=== PATIENT | male | born 1945 | race Caucasian/White ===

== ENCOUNTER 2019-12-27 10:45 | Emergency (ER) | payer MEDICARE, MEDICAID ==
[~2019-12-27] VITALS: Ht 170.2 cm; Wt 68.0 kg
[2019-12-27 11:53] LABS: BASO % 0 % (0-3); EOS # 0.3 x10^3/uL (0.0-0.7); EOS % 3 % (0-3); HEMATOCRIT 38.4 % (39.0-53.0); LYMPH # 2.3 x10^3/uL (1.0-4.8); LYMPH % 25 % (24-48); MEAN CORPUSCULAR HEMOGLOBIN 30 pg (25-35); MEAN CORPUSCULAR HGB CONC 34 g/dL (31-37); MEAN CORPUSCULAR VOLUME 90 fL (79-100); MONO # 0.9 x10^3/uL (0.0-1.1); MONO % 10 % (0-9); NEUT # 5.8 x10^3/uL (1.8-7.7); NEUT % 62 % (31-73); PLATELET COUNT 219 x10^3/uL (140-400); RED BLOOD COUNT 4.28 x10^6/uL (4.30-5.70); RED CELL DISTRIBUTION WIDTH 13.3 % (11.5-14.5); WHITE BLOOD COUNT 9.3 x10^3/uL (4.0-11.0)
[2019-12-27 11:54] LABS: BILIRUBIN,URINE NEGATIVE (NEG); CLARITY,URINE CLEAR; COLOR,URINE YELLOW; NITRITE,URINE NEGATIVE (NEG); PROTEIN,URINE NEGATIVE (NEG-TRACE); UROBILINOGEN,URINE 0.2 mg/dL (0.2 mg/dL)
[2019-12-27 12:03] LABS: AMORPHOUS SEDIMENT,UR PRESENT /HPF; BACTERIA,URINE FEW /HPF (0-FEW); CALCIUM 8.6 mg/dL (8.5-10.1); CREATININE 1.3 mg/dL (0.7-1.3); HYALINE CASTS, URINE FEW /HPF; POTASSIUM 4.7 mmol/L (3.5-5.1); RBC,URINE 0 /HPF (0-2); SQUAMOUS EPITHELIAL CELL,UR OCC /LPF
[2019-12-27 12:04] LABS: PROTHROMBIN TIME PATIENT 13.9 SEC (11.7-14.0)
[2019-12-27 12:08] LABS: D-DIMER 0.38 ug/mlFEU (0.00-0.50)
[2019-12-27 12:22] LABS: ALBUMIN 3.4 g/dL (3.4-5.0); ALBUMIN/GLOBULIN RATIO 1.1 (1.0-1.7); C-REACTIVE PROTEIN 0.8 mg/L (0-3.3); TOTAL BILIRUBIN 0.9 mg/dL (0.2-1.0); TOTAL PROTEIN 6.5 g/dL (6.4-8.2)
--- NOTE | 2019-12-27 12:46 | RAD ---
EXAM: CHEST 1 VIEW History: Chest pain COMPARISON: None available. TECHNIQUE: Single portable radiograph of the chest FINDINGS: The cardiac silhouette is unremarkable. The lungs are clear bilaterally. The costophrenic sulci are clear and well demarcated. IMPRESSION: No radiographic evidence of an acute cardiopulmonary process. Electronically signed by: Russell Rg MD (12/27/2019 12:43 PM) [id number]
--- NOTE | 2019-12-27 12:53 | PHYS DOC ---
Past Medical History Past Medical History: Depression, Hypertension Additional Past Medical Histor: "TBI, HEAD BLEED" 20 YEARS AGO Past Surgical History: Other Additional Past Surgical Histo: "HEAD BLEED SURGERY" Smoking Status: Never Smoker Alcohol Use: None General Adult EDM: Chief Complaint: MULTIPLE COMPLAINTS HPI: HPI: Patient is a 74 year old male who presents to the emergency department via EMS from his assisted living center with complaints of low-grade fevers, generalized weakness, and feeling shaky for the last week. EMS reports that the nursing facility informed that the patient had a negative test for COVID last week after having the same symptoms. Patient states that he has noticed for the last 2 days that it hurts whenever he goes pee and he complains of suprapubic abdominal pain. Patient has a history of a traumatic brain injury and hydrocephalus, due to that this there is a history of cognitive delay. He denies any nausea, vomiting, diarrhea, shortness of breath, cough, headache, or rash. He currently denies any pain at rest, he states that his lower abdomen only hurts when he pushes on it and he only has pain with urination. Review of Systems: Review of Systems: Constitutional: See HPI HENT: Denies nasal congestion or sore throat. [] Respiratory: Denies cough or shortness of breath. [] Cardiovascular: Denies chest pain or edema. [] GI: Denies nausea, vomiting, or diarrhea; see HPI : see HPI Musculoskeletal: Denies back pain or joint pain. [] Integument: Denies rash. [] Neurologic: Denies headache, focal weakness or sensory changes. [] Psychiatric: Denies depression or anxiety. [] Heart Score: Risk Factors: Risk Factors: DM, Current or recent (<one month) smoker, HTN, HLP, family history of CAD, obesity. Risk Scores: Score 0 - 3: 2.5% MACE over next 6 weeks - Discharge Home Score 4 - 6: 20.3% MACE over next 6 weeks - Admit for Clinical Observation Score 7 - 10: 72.7% MACE over next 6 weeks - Early Invasive Strategies Allergies: Allergies: Allergies Coded Allergies Type Severity Reaction Last Updated Verified No Known Drug Allergies 12/27/19 No Physical Exam: PE: Constitutional: Well developed, well nourished, no acute distress, non-toxic appearance. [] HENT: Normocephalic, atraumatic, bilateral external ears normal, oropharynx moist, nose normal. [] Eyes: PERRLA, EOMI, conjunctiva normal, no discharge. [] Neck: Normal range of motion, no stridor. [] Cardiovascular:Heart rate regular rhythm, no murmur [] Lungs & Thorax: Bilateral breath sounds clear to auscultation [] Abdomen: Bowel sounds normal, soft, suprapubic TTP, no guarding, no rebound tenderness, no masses, no pulsatile masses. [] Skin: Warm, dry, no erythema, no rash. [] Back: No tenderness, no CVA tenderness Extremities: No cyanosis, ROM intact, no edema. [] Neurologic: Alert and oriented X 3, normal motor function, normal sensory function, no focal deficits noted. [] Psychologic: Affect normal, judgement normal, mood normal. [] Current Patient Data: Labs: Laboratory Tests Test 12/27/19 11:35 White Blood Count 9.3 x10^3/uL (4.0-11.0) Red Blood Count 4.28 x10^6/uL (4.30-5.70) L Hemoglobin 13.0 g/dL (13.0-17.5) Hematocrit 38.4 % (39.0-53.0) L Mean Corpuscular Volume 90 fL (79-100) Mean Corpuscular Hemoglobin 30 pg (25-35) Mean Corpuscular Hemoglobin Concent 34 g/dL (31-37) Red Cell Distribution Width 13.3 % (11.5-14.5) Platelet Count 219 x10^3/uL (140-400) Neutrophils (%) (Auto) 62 % (31-73) Lymphocytes (%) (Auto) 25 % (24-48) Monocytes (%) (Auto) 10 % (0-9) H Eosinophils (%) (Auto) 3 % (0-3) Basophils (%) (Auto) 0 % (0-3) Neutrophils # (Auto) 5.8 x10^3/uL (1.8-7.7) Lymphocytes # (Auto) 2.3 x10^3/uL (1.0-4.8) Monocytes # (Auto) 0.9 x10^3/uL (0.0-1.1) Eosinophils # (Auto) 0.3 x10^3/uL (0.0-0.7) Basophils # (Auto) 0.0 x10^3/uL (0.0-0.2) Prothrombin Time 13.9 SEC (11.7-14.0) Prothrombin Time INR 1.1 (0.8-1.1) Activated Partial Thromboplast Time 63 SEC (24-38) H D-Dimer (Harleen) 0.38 ug/mlFEU (0.00-0.50) Urine Collection Type Void Urine Color Yellow Urine Clarity Clear Urine pH 6.0 (<5.0-8.0) Urine Specific [place] 1.025 (1.000-1.030) Urine Protein Negative mg/dL (NEG-TRACE) Urine Glucose (UA) Negative mg/dL (NEG) Urine Ketones (Stick) Negative mg/dL (NEG) Urine Blood Negative (NEG) Urine Nitrite Negative (NEG) Urine Bilirubin Negative (NEG) Urine Urobilinogen Dipstick 0.2 mg/dL (0.2 mg/dL) Urine Leukocyte Esterase Negative (NEG) Urine RBC 0 /HPF (0-2) Urine WBC 1-4 /HPF (0-4) Urine Squamous Epithelial Cells Occ /LPF Urine Amorphous Sediment Present /HPF Urine Bacteria Few /HPF (0-FEW) Urine Hyaline Casts Few /HPF Urine Mucus Mod /LPF Sodium Level 144 mmol/L (136-145) Potassium Level 4.7 mmol/L (3.5-5.1) Chloride Level 107 mmol/L (98-107) Carbon Dioxide Level 32 mmol/L (21-32) Anion Gap 5 (6-14) L Blood Urea Nitrogen 28 mg/dL (8-26) H Creatinine 1.3 mg/dL (0.7-1.3) Estimated GFR (Cockcroft-Gault) 54.0 BUN/Creatinine Ratio 22 (6-20) H Glucose Level 79 mg/dL (70-99) Calcium Level 8.6 mg/dL (8.5-10.1) Magnesium Level 2.0 mg/dL (1.8-2.4) Ferritin 81 ng/mL (26-388) Total Bilirubin 0.9 mg/dL (0.2-1.0) Aspartate Amino Transferase (AST) 22 U/L (15-37) Alanine Aminotransferase (ALT) 27 U/L (16-63) Alkaline Phosphatase 46 U/L (46-116) Creatine Kinase 207 U/L (39-308) Creatine Kinase MB (Mass) 2.4 ng/mL (0.0-3.6) Creatine Kinase MB Relative Index 1.2 % (0-4) Troponin I Quantitative < 0.017 ng/mL (0.000-0.055) C-Reactive Protein, Quantitative 0.8 mg/L (0-3.3) CJ-Pbr-F-Type Natriuretic Peptide 178 pg/mL (0-124) H Total Protein 6.5 g/dL (6.4-8.2) Albumin 3.4 g/dL (3.4-5.0) Albumin/Globulin Ratio 1.1 (1.0-1.7) Lipase 176 U/L (73-393) Laboratory Tests 12/27/19 11:35 Laboratory Tests 12/27/19 11:35 Vital Signs: Vital Signs Date Time Temp Pulse Resp B/P (MAP) Pulse Ox O2 Delivery O2 Flow Rate FiO2 12/27/19 10:54 98.9 72 18 134/61 (85) 98 Room Air 98.9 EKG: EK-sinus rhythm, rate 70, left anterior fascicular block, no STEMI, read by Dr. Horvath [] Radiology/Procedures: Radiology/Procedures: []PROCEDURE: CHEST AP ONLY EXAM: CHEST 1 VIEW History: Chest pain COMPARISON: None available. TECHNIQUE: Single portable radiograph of the chest FINDINGS: The cardiac silhouette is unremarkable. The lungs are clear bilaterally. The costophrenic sulci are clear and well demarcated. IMPRESSION: No radiographic evidence of an acute cardiopulmonary process. Course & Med Decision Making: Course & Med Decision Making Pertinent Labs and Imaging studies reviewed. (See chart for details) 74-year-old male presents to the emergency department with complaints of dysuria, suprapubic tenderness, and fatigue for the last week with low-grade fevers reported by EMS. Chest x-ray was unremarkable, there were no acute changes on his EKG. The patient's vital signs are stable throughout his emergency department stay. CBC revealed a RBC of 4.28 otherwise unremarkable; PT and INR were within normal limits, d-dimer was 0.38; CMP revealed a BUN of 28 and an elevated BUN/creatinine ratio of 22, patient's BNP was 178, troponin was negative; urinalysis revealed 1-4 white blood cells with few bacteria. The patient was symptomatic therefore he was treated with a gram of IV Rocephin. In the emergency department I gave the patient a liter of NS. He reported feeling better after the fluids. I prescribed the patient Keflex 500 mg 4 times daily x7 days. Encouraged him to follow-up with his primary care doctor in the next 1 to 2 days. Return to the ER if symptoms worsen. Patient verbalized an understanding of home care, medications, follow-up, and return to ED instructions and was in agreement with the plan of care. [] Dragon Disclaimer: Dragon Disclaimer: This electronic medical record was generated, in whole or in part, using a voice recognition dictation system. Departure Departure Impression: Primary Impression: Dysuria Additional Impressions: UTI (urinary tract infection) Qualified Codes: N39.0 - Urinary tract infection, site not specified Generalized weakness Disposition: 01 HOME, SELF-CARE Condition: STABLE Referrals: ALVAREZ RAMIREZ MD (PCP) Patient Instructions: Dysuria-Brief, Urinary Tract Infection, [id number] Additional Instructions: Fill prescription(s) and use as directed. Avoid bladder irritants such as caffeine, carbonation, and spicy foods. Increase clear fluids. Follow up with your primary care doctor in 1-2 days, return to the ER if symptoms worsen. Scripts Cephalexin (CEPHALEXIN) 500 Mg Capsule 1 CAP PO QID for 7 Days, #28 CAP 0 Refills Prov: WHITNEY LANDON APRN 12/27/19 Justicifation of Admission Dx: Justifications for Admission: Justification of Admission Dx: N/A WHITNEY LANDON APRN Dec 27, 2019 12:53
[2019-12-27] MEDS ORDERED: cefTRIAXone IV Push 1 GM VIAL. IVP ONE (13:15)
[2019-12-27] MEDS ORDERED: IV NORMAL SALINE 1000ML BAG 1,000 ML IV ONE (13:15)
[2019-12-27] MEDS ORDERED: CEPH500C PO (13:51)
[2019-12-27 13:55] VITALS: BP 135/60
--- NOTE | 2019-12-28 06:11 | EKG ---
[facility] [address] [place] [address] Test Date: 2019-12-27 Test Time: 11:13:37 Pat Name: DANN DUNLAP Department: Patient ID: [id number] Room: Gender: M [employer]: [facility] : 1945 Requested By: WHITNEY LANDON Order Number: [id number] Reading MD: Measurements Intervals [place] Rate: 70 P: 64 GA: 142 QRS: -59 QRSD: 94 T: 38 QT: 400 QTc: 435 Interpretive Statements SINUS RHYTHM ABNORMAL LEFT AXIS DEVIATION LEFT ANTERIOR FASCICULAR BLOCK ABNORMAL ECG RI6.02 No previous ECG available for comparison
== END 2019-12-27 17:20 | disposition home or self-care (01) ==
LOC: ER 10:45
DX: N39.0 Urinary tract infection, site not specified (principal); R53.1 Weakness; I10 Essential (primary) hypertension; F32.9 Major depressive disorder, single episode, unspecified; Z87.820 Personal history of traumatic brain injury
CPT/HCPCS: 36415; 71045; 80053; 81001; 82553; 82728; 83690; 83735; 83880; 84484; 85025; 85379; 85610; 85730; 86140; 93005; 96361; 96374; 99285; J0696; J7030